=== PATIENT | female | born 1995 | race Caucasian/White ===

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

== ENCOUNTER 2017-01-07 04:48 | Inpatient (IN) | payer MEDICAID ==
[~2017-01-07] VITALS: Ht 170.2 cm; Wt 64.9 kg
[2017-01-07 05:12] VITALS: BP 128/84
[2017-01-07] MEDS ORDERED: MACROBID100 M3 PO (05:17)
[2017-01-07 05:18] LABS: URINE BILIRUBIN - DIPSTICK NEGATIVE (NEG); URINE BLOOD NEGATIVE (NEG)
[2017-01-07] MEDS ORDERED: FLAGYL 250MG.250 MG PO (05:18)
--- NOTE | 2017-01-07 06:44 | ACUTE CARE PROGRESS NOTE (QUA) ---
Progress Notes Subjective Date 01/07/17 Time 0641 Assessment/Plan This inpt stay is expected to cross 2 MNs from start of care Yes () Comments: This 21-year-old 2, para 1, AB 0 white female at 38 weeks gestation presented to the labor room with irregular, but strong, contractions. Her cervix changed and 1 hour from thick and closed to 1 cm and 50 percent effaced. She was scheduled for a repeat section 1 week from today. Observation of the external monitor revealed nonreassuring variability and occasional decelerations, with good return to baseline. She has been treated for urinary tract infection and Trichomonas recently. At this point, prudence dictates delivery and she is being prepped for repeat section this morning. Her vital signs are stable. Her blood type is Rh positive. She is group B strep negative. at 0671
--- NOTE | 2017-01-07 08:00 | Anesthesia Record ---
Anesthesia Record Part I Total IV fluids: 1400 EBL (ml): 600 Urine Output: 200 B/P: 119/75 % SaO2: 98 Pulse: 98 Resps: 12 Temp: 98 Patient is: Awake, Stable Stable to PACU at: 0755 at 0800
--- NOTE | 2017-01-07 08:00 | Operative Note ---
Procedure/Operative Record Date of Procedure: 01/07/17 Referring physician: Dr. Donnelly Pre-op diagnosis: 1. Term intrauterine . 2. Previous section. 3. Nonreassuring heart rate pattern. 4. Contractions, with cervical change. Post-op diagnosis: 1. Term intrauterine , delivered. 2. Previous section. 3. Nonreassuring heart rate pattern. 4. Contractions with cervical change. 5. Placental abruption. 6. 9/9, 6.5 ounce, 19 inch female , born at 0715. Procedure performed: Emergency repeat low transverse cervical section. Surgeon: Jens Pizarro Internal Salesperson(s): Dr. Wellington Anesthesia: Spinal, FIBER LOCKING SUPERVISOR Shyla Indications: 1. Term intrauterine . 2. Previous section. 3. Labor. 4. Nonreassuring heart rate pattern. Description of procedure: After the patient was draped in usual fashion and spinal anesthesia was administered, a low Pfannenstiel incision was made through the previous incision , and the fat and fascia were in the usual fashion, bleeders being clamped and coagulated along the way. The peritoneum was entered with a knife, and extended above and below with Metzenbaum scissors. The bladder peritoneum was sharply and bluntly dissected from the area of incision (it was very thin), and the bladder was protected with a bladder blade. The uterus was entered in low transverse fashion with a knife, and the incision was extended bluntly, bilaterally. The amniotic sac was ruptured for clear fluid (no blood or meconium ). The baby was found to be in the LOP position of the vertex and, with appropriate fundal pressure, the head was easily delivered. There was no nuchal cord. The baby's naso-and oropharynx were bulb suctioned, and the baby cried spontaneously on the abdomen, as was delivered. The cord was clamped and cut, 3 vessels were noted to be within the cord, and cord blood was obtained. The cord pH was 7.40. He was handed into the arms of the attending manager real estate, Dr. Donnelly, who assigned Apgars of 9 at 1 minute and 9 at 5 minutes to this 6 lbs. 5 oz., 19 inch female infant, born at 0715. The baby was taken to the nursery in excellent condition, along with the patient's sister, who had been present in the operating room. The placenta was then delivered manually. It was considerably frayed and friable, consistent with partial abruption. A ring forceps was used to assure adequate drainage through the cervix; this was then passed off the field, as an unsterile instrument. The uterus was closed in 2 layers, the first a running locked suture of #1 Vicryl as an endometrial layer; the second a running unlocked suture of #1 Vicryl, imbricating over the first as a myometrial layer. The bladder peritoneum was closed with a running unlocked suture of 2-0 Vicryl. Blood and clots within swept from the gutters, and the tubes and ovaries were inspected and found to be normal. The peritoneum was grasped with 3 Shahla clamps, and closed with a running semi-locked suture of 0 Vicryl. The muscle was approximated with a running unlocked suture of 0 Vicryl. The fascia was closed with a running locked suture of #1 Vicryl. The subcutaneous fat and Ton's fascia were closed with a running unlocked suture of 2-0 Vicryl. The skin was closed with subcuticular suture of 3-0 Vicryl, and appropriately dressed. The sponge and needle counts correct. The estimated blood loss was 400 mL. The urine was clear in the Frances catheter. A pelvic examination at the close of the procedure express blood and clots from the involuting uterus , with IV Pitocin running. The patient tolerated procedure well, and was taken to PACU in excellent condition. Her blood type is O positive. Her rubella titer is immune. She plans to bottlefeed. EBL (ml): 400 Complications: None Specimens: Placenta to pathology at 7591
--- NOTE | 2017-01-07 08:01 | Anesthesia Record ---
Anesthesia Record Part II Discharge time: 824 Destination: OB PACU nurse assessment review? Yes Patient is: Awake, Stable Anesthesia complications? No at 0800
[2017-01-07 08:05] LABS: ABO BLOOD TYPE O; RH BLOOD TYPE POSITIVE
[2017-01-07 08:08] LABS: HEMOGLOBIN 12.3 g/dL (12.2-16.2); LYMPH # 3.2 K/mm3 (0.7-4.5); LYMPH % 18.3 % (10-50.0)
[2017-01-07 08:30] VITALS: BP 119/71
[2017-01-07 12:27] LABS: NEUTROPHILS 76 % (42-76)
--- NOTE | 2017-01-07 12:49 | ACUTE CARE PROGRESS NOTE (QUA) ---
Progress Notes Subjective Date 01/07/17 Time 1249 Note The patient is afebrile. Vital signs stable. Wound clean. Abdomen soft. Lochia normal. Uterine fundus involuting well. Impression: Stable. Assessment/Plan This inpt stay is expected to cross 2 MNs from start of care Yes () at 1248
[2017-01-07 20:25] VITALS: BP 119/74
[2017-01-07 22:49] VITALS: BP 131/77
[2017-01-08 07:59] LABS: HEMOGLOBIN 9.4 g/dL (12.2-16.2)
--- NOTE | 2017-01-08 08:33 | ACUTE CARE PROGRESS NOTE (QUA) ---
Progress Notes Subjective Date 01/08/17 Time 0832 Note This is and postop day number 1. The patient is afebrile. Vital signs stable. Wound clean. Abdomen soft. Lochia normal. Uterine fundus is involuting well. Hemoglobin 9.4 g, but clinically stable. Impression: Stable. Baby is doing well. Assessment/Plan This inpt stay is expected to cross 2 MNs from start of care Yes () at 0855
[2017-01-08 08:35] VITALS: BP 113/65
[2017-01-08 19:45] VITALS: BP 119/59
[2017-01-09 08:25] VITALS: BP 120/67
--- NOTE | 2017-01-09 08:29 | ACUTE CARE PROGRESS NOTE (QUA) ---
Progress Notes Subjective Date 01/09/17 Time 0828 Note This is /postop day number 2. The patient is afebrile. Vital signs stable. Wound clean. Abdomen soft. Lochia normal. Uterine fundus has involuted well. The baby is doing well. She is anxious for early discharge and will be discharged today. Assessment/Plan This inpt stay is expected to cross 2 MNs from start of care Yes () at 0828
--- NOTE | 2017-01-09 08:33 | DISCHARGE SUMMARY STANDARD ---
Discharge Summary Date of admission: 01/07/17 Date of discharge: 01/09/17 Patient condition: Stable Discharge diagnosis (es): 1. Term intrauterine , delivered. 2. Previous section. 3. distress. 4. Placental abruption. 5. Anemia. Hospital course: This 21-year-old 2, now para 2, AB 0 white female was admitted at 38 weeks of gestation with irregular contractions and a nonreassuring heart rate pattern on the external monitor. Her cervix is 1 cm dilated and 50 percent effaced at the time of admission. She had been scheduled for a repeat section 1 week later. After observation and fluids failed to correct the heart rate pattern, she was taken to the operating room, where she underwent a repeat low transverse cervical section, without complications. The baby was an 9/9, 6 lbs. 5 oz., 19 inch female infant, who is bottlefeeding and has done well. A placental abruption was discovered at the time of section. Estimated blood loss was 400 mL. The patient's hemoglobin on admission was 12.3 g; postoperatively it is 9.4 g, but she is clinically stable. and postoperatively, the patient has done well. She is eating and ambulating, and has had a bowel movement. Her wound is clean. Her abdomen is soft. Her lochia is normal. She is anxious for early discharge, and so was discharged home on the second /postoperative day on iron and vitamins, and on Percocet 5/325 (number 30), 1 by mouth every 6 hours when necessary pain. She is given appropriate instructions as to diet, exercise, and wound care, and she is to return the office in 2 weeks for follow-up. Her blood type is O positive. Her rubella titer is immune. She is a smoker, but refuses smoking cessation patches. at 0147
[2017-01-09] MEDS ORDERED: HYDROCODONE-APA1 TA1 PO (08:35)
--- NOTE | 2017-01-09 11:50 | PHARMACY CLINIC NOTE ---
Patient Demographics Patient Demographics Admission date: 01/07/17 Date: 01/09/17 Time: 1150 Allergies Coded Allergies: Pecan (-- 01/07/17) red dye (-- 01/07/17) HEIGHT- FT: 5 IN: 7.00 K.864 VTE General Information Disclaimer The following section includes nursing documentation that has been pulled in for pharmacy review. VTE prophylaxis NQF 0371 VTE prophylaxis ordered? Yes Type of prophylaxis/treatment: ICD at 1150
== END 2017-01-09 10:40 | disposition home or self-care (01) | DRG 766 ==
LOC: OB 04:48 → OBOUT 04:48 → OB 07:31
PROVIDERS: Obstetrics & Gynecology
PROC: 10D00Z1 Extraction of Products of Conception, Low, Open Approach (ICD-10-PCS; principal; 2017-01-07 06:56)
DX: O45.93 Premature separation of placenta, unspecified, third trimester (principal); N85.8 Other specified noninflammatory disorders of uterus; Z37.0 Single live birth; Z3A.38 38 weeks gestation of pregnancy; O76 Abnormality in fetal heart rate and rhythm complicating labor and delivery; O34.211 Maternal care for low transverse scar from previous cesarean delivery